=== PATIENT | male | born 1960 | race Caucasian/White ===

== ENCOUNTER 2024-01-05 08:42 | Inpatient (IN) | payer MEDICARE, OTHER ==
[~2024-01-05] VITALS: Ht 175.3 cm; Wt 81.6 kg
[2024-01-05] MEDS ORDERED: ACETAMINOPHEN 325 MG TABLET PO PRN (09:30)
[2024-01-05] MEDS ORDERED: TEMAZEPAM 7.5 MG CAPSULE PO PRN (09:30)
[2024-01-05] MEDS ORDERED: MAG HYDROX/AL HYDROX/SIMETH 30 ML UDC PO PRN (09:30)
[2024-01-05] MEDS: BLOOD SUGAR DIAGNOSTIC 1 EACH STRIP IN ONE (09:31)
[2024-01-05 10:00] VITALS: BP 145/83; TEMP 98; O2SAT 98
[2024-01-05] MEDS ORDERED: OLAN15TA3 PO (10:51)
[2024-01-05] MEDS ORDERED: OMEP40CA21 PO (10:51)
[2024-01-05] MEDS ORDERED: LITH300C4 PO (10:51)
[2024-01-05] MEDS ORDERED: TEMA7.5C12 PO (10:51)
[2024-01-05] MEDS ORDERED: CLOT15CR35 TP (10:51)
[2024-01-05] MEDS ORDERED: DIVA500T54 PO (10:51)
[2024-01-05] MEDS ORDERED: OLAN20TA3 PO (10:51)
[2024-01-05] MEDS: DIVALPROEX SODIUM 500 MG TABLET.DR PO SCH (14:28)
[2024-01-05] MEDS: OLANZAPINE 10 MG TABLET PO SCH ×2 (14:28→21:40)
[2024-01-05 16:00] VITALS: BP 134/83; TEMP 98.5; O2SAT 98
[2024-01-05] MEDS ORDERED: TAMS-12 PO (17:55)
[2024-01-05] MEDS ORDERED: MUPI22OI2 TP (17:55)
[2024-01-05] MEDS ORDERED: FLUT16SP BNOSTRILS (17:55)
[2024-01-05] MEDS ORDERED: LORA10TA7 PO (17:55)
[2024-01-05] MEDS ORDERED: MELA1TAB23 SL (17:55)
[2024-01-05] MEDS ORDERED: DOCU100C36 PO (17:55)
[2024-01-05] MEDS ORDERED: ALBU18HF2 IH (17:55)
[2024-01-05] MEDS ORDERED: CALC-1143 PO (17:55)
[2024-01-05] MEDS ORDERED: FLUT1BLS IH (17:55)
[2024-01-05] MEDS ORDERED: SIMV-49 PO (17:55)
[2024-01-05] MEDS ORDERED: TRIA80CR12 TP (17:55)
[2024-01-05] MEDS ORDERED: LEVO150T8 PO (17:55)
[2024-01-05 20:00] VITALS: BP 148/92; TEMP 98.2; O2SAT 96
[2024-01-05] MEDS ORDERED: ALBUTEROL FS 2.5 MG/0.5 ML VIAL.NEB IH PRN (20:00)
[2024-01-05] MEDS: LITHIUM CARBONATE (300 MG CAP) 300 MG CAPSULE PO SCH (21:40)
[2024-01-05] MEDS: SIMVASTATIN 20 MG TABLET PO SCH (21:40)
[2024-01-06] MEDS: BUDESONIDE RESPULE INH 0.5 MG/2 ML AMPUL.NEB IH SCH (07:30)
[2024-01-06 08:00] VITALS: BP 107/74; TEMP 97.9; O2SAT 96
[2024-01-06 08:09] LABS: CREATININE 0.7 mg/dL (0.6-1.3)
[2024-01-06] MEDS: CALCIUM CARBONATE 500 MG TAB.CHEW PO SCH (08:13)
[2024-01-06] MEDS: TAMSULOSIN 0.4 MG CAP.SR.24H PO SCH (08:13)
[2024-01-06] MEDS: DOCUSATE SODIUM 100 MG CAPSULE PO SCH (08:13)
[2024-01-06] MEDS: LEVOTHYROXINE SODIUM 100 MCG TABLET PO SCH (08:13)
[2024-01-06] MEDS: PANTOPRAZOLE 40 MG TABLET.DR PO SCH (08:14)
[2024-01-06 08:19] LABS: ALBUMIN 2.7 g/dL (3.4-5.0); BILIRUBIN,TOTAL 0.3 mg/dL (0.2-1.0); CALCIUM, SERUM 9.1 mg/dL (8.5-10.1); CREATININE 0.7 mg/dL (0.6-1.3); POTASSIUM 4.6 mmol/L (3.5-5.1); TOTAL PROTEIN, SERUM 5.5 g/dL (6.4-8.2)
[2024-01-06] MEDS: CLOTRIMAZOLE 1% 15 GM TUBE TP SCH (08:22)
[2024-01-06] MEDS: FLUTICASONE PROPIONATE 16 GM BOTTLE NS SCH (08:22)
[2024-01-06] MEDS: TRIAMCINOLONE ACETONIDE 0.1% CR 15 GM TUBE TP SCH (08:22)
[2024-01-06] MEDS: MAGNESIUM HYDROXIDE 30 ML UDC PO PRN (12:53)
[2024-01-06 16:00] VITALS: BP 95/62; TEMP 97.8; O2SAT 96
[2024-01-06 20:49] VITALS: BP 117/80; TEMP 97.9; O2SAT 96
[2024-01-06] MEDS: TEMAZEPAM 7.5 MG CAPSULE PO PRN (21:10)
[2024-01-07 08:00] VITALS: BP 123/72; TEMP 97.8; O2SAT 96
[2024-01-07 16:00] VITALS: BP 112/70; TEMP 98; O2SAT 96
[2024-01-07 21:11] VITALS: BP 126/87; TEMP 98; O2SAT 97
[2024-01-08 08:00] VITALS: BP 126/87; TEMP 97.9; O2SAT 99
[2024-01-08 09:16] LABS: THYROID STIMULATING HORMONE 2.831 uIU/mL (0.358-3.74)
[2024-01-08 16:00] VITALS: BP 111/75; TEMP 97.9; O2SAT 98
[2024-01-08 21:05] VITALS: BP 122/90; TEMP 97.9; O2SAT 98
[2024-01-09 08:00] VITALS: BP 139/99; TEMP 97.8; O2SAT 95
[2024-01-09 16:09] VITALS: BP 106/85; TEMP 98; O2SAT 96
[2024-01-09 21:08] VITALS: BP 118/76; TEMP 98; O2SAT 99
[2024-01-10 08:00] VITALS: BP 127/72; TEMP 97.9; O2SAT 98
[2024-01-10 16:00] VITALS: BP 105/71; TEMP 98.2; O2SAT 96
[2024-01-10 20:00] VITALS: BP 127/80; TEMP 98.4; O2SAT 99
[2024-01-11 08:00] VITALS: BP 119/80; TEMP 97.8; O2SAT 98
[2024-01-11] MEDS: LORAZEPAM 0.5 MG TABLET PO PRN (09:41)
[2024-01-11 16:00] VITALS: BP 124/80; TEMP 98; O2SAT 100
[2024-01-11 20:00] VITALS: BP 113/80; TEMP 98.1; O2SAT 97
[2024-01-12 08:00] VITALS: BP 119/80; TEMP 98; O2SAT 95
[2024-01-12 16:00] VITALS: BP 116/75; TEMP 98.6; O2SAT 97
[2024-01-12 20:00] VITALS: BP 118/77; TEMP 98.1; O2SAT 97
[2024-01-13 08:00] VITALS: BP 119/84; TEMP 98.5; O2SAT 96
[2024-01-13 16:00] VITALS: BP 114/91; TEMP 97.9; O2SAT 96
[2024-01-13 21:12] VITALS: BP 92/76; TEMP 97.9; O2SAT 98
[2024-01-14 08:00] VITALS: BP 121/77; TEMP 98.5; O2SAT 98
[2024-01-14] MEDS: PANTOPRAZOLE 40 MG TABLET.DR PO SCH (08:17)
[2024-01-14 16:00] VITALS: BP 120/82; TEMP 97.7; O2SAT 97
[2024-01-14 20:25] VITALS: BP 112/86; TEMP 97.8; O2SAT 95
[2024-01-15 07:43] LABS: BASOPHILS % (AUTO) 0.7 % (0.0-2.0); EOSINOPHILS # (AUTO) 0.1 K/uL (0.0-0.7); EOSINOPHILS % (AUTO) 2.1 % (0.0-6.0); HEMATOCRIT 35 % (39-51); HEMOGLOBIN 11.8 g/dL (13.5-17.5); LYMPHOCYTES % (AUTO) 43.1 % (20.0-44.0); MEAN CORPUSCULAR HEMOGLOBIN 34 PG (26.0-33.0); MEAN CORPUSCULAR HGB CONC 34 g/dl (31.0-36.0); MEAN CORPUSCULAR VOLUME 101 fL (80-96); MONOCYTES # (AUTO) 0.8 K/uL (0.1-1.30); MONOCYTES % (AUTO) 11.1 % (2.0-12.0); NEUTROPHILS # (AUTO) 2.9 K/uL (1.8-8.9); PLATELET COUNT (AUTO) 147 K/uL (150-450); RED BLOOD CELL COUNT(AUTO) 3.47 MIL/uL (4.5-6.0); WHITE BLOOD COUNT (AUTO) 6.8 K/uL (4.3-11.0)
[2024-01-15 08:00] VITALS: BP 123/71; TEMP 98.6; O2SAT 98
== END 2024-01-15 14:20 | disposition home or self-care (01) | DRG 885 ==
LOC: GPS 08:42
PROVIDERS: ADMIT Psychiatry & Neurology Psychosomatic Medicine; ATTEND Internal Medicine
DX: F25.9 Schizoaffective disorder, unspecified (principal); F70 Mild intellectual disabilities; R45.851 Suicidal ideations; F29 Unspecified psychosis not due to a substance or known physiological condition; Z79.899 Other long term (current) drug therapy; E03.9 Hypothyroidism, unspecified; E78.5 Hyperlipidemia, unspecified; F32.9 Major depressive disorder, single episode, unspecified; N40.0 Benign prostatic hyperplasia without lower urinary tract symptoms; Z79.51 Long term (current) use of inhaled steroids; Z79.890 Hormone replacement therapy; G31.84 Mild cognitive impairment of uncertain or unknown etiology; R45.1 Restlessness and agitation
CPT/HCPCS: 36415; 71045-TC; 80053-TC; 80061-TC; 80164-TC; 82565-TC; 82962-TC; 84443-TC; 85025-TC